=== PATIENT | male | born 1965 | race Caucasian/White ===

== ENCOUNTER 2020-06-27 18:55 | Emergency (ER) | payer BC ==
[2020-06-27 18:59] VITALS: BP 140/90; PULSE 94
--- NOTE | 2020-06-27 19:14 | EDM.PDOC ---
ED HPI GENERAL MEDICAL PROBLEM - General Chief Complaint: Upper Extremity Injury/Pain Stated Complaint: Arm pain and swelling Time Seen by Provider: 06/27/20 18:55 Source of Information: Reports: Old Records ([facility] EMR. No paper hospital chart available.) History Limitations: Reports: No Limitations - History of Present Illness INITIAL COMMENTS - FREE TEXT/NARRATIVE: The patient was brought to the emergency room via private automobile by his for evaluation of 03/11 throbbing, sharp right biceps pain after an [place] the [place] he [place] working at about 4 PM this afternoon. The patient was trying to jump onto a tractor when his coworker suddenly drove off resulting in his right arm injury. He did hear a pop at the time of the injury. The patient denies any history of fall, head injury, paresthesias, neurological deficits, neck/back pain, or other complaints or injuries. He is right-handed and has not injured this arm in the past. No treatment prior to arrival. The patient denies any chest pain/pressure, heart flutter, dizziness, orthostasis, orthopnea, diaphoresis, paresthesias, recent decreased exercise tolerance, or any other anginal-type symptoms. No recent history of abdominal pain, heartburn, nausea, diarrhea, melena, gross hematochezia, or any food intolerance, including fatty foods, etc.. The patient also denies any recent fever, cough, wheezing, dyspnea, etc.. Onset: Today, Sudden Onset Date: 06/27/20 Onset Time: 16:00 Duration: Constant Location: Reports: Upper Extremity, Right. Denies: Head, Face, Neck, Chest, Abdomen, Back, Pelvis, Upper Extremity, Left, Radiates to Quality: Reports: Sharp, Throbbing Severity: Moderate Improves with: Reports: Rest Worsens with: Reports: Movement Context: Reports: Trauma (As above) Associated Symptoms: Denies: Confusion, Chest Pain, Cough, Diaphoresis, Fever/Chills, Headaches, Loss of Appetite, Nausea/Vomiting, Rash, Shortness of Breath, Syncope, Weakness Treatments PRE CODER: Reports: Other (see below) (None) Right Upper Arm Pain Score (Numeric/FACES): 7 - Related Data Allergies Allergy/AdvReac Type Severity Reaction Status Date / Time No Known Allergies Allergy Verified 06/27/20 19:06 Home Meds: Home Meds Aspirin 81 mg PO BRK 09/11/16 [History] Benazepril [Lotensin] 20 mg PO DAILY 09/11/16 [History] Multivitamin [Multi-Day Vitamins] 1 tab PO DAILY 09/11/16 [History] amLODIPine [Norvasc] 10 mg PO DAILY 09/11/16 [History] atorvaSTATin [Lipitor] 40 mg PO BEDTIME 09/11/16 [History] metFORMIN [Glucophage] 1,000 mg PO BIDMEALS 09/11/16 [History] Past Medical History HEENT History: Reports: None. Denies: Allergic Rhinitis, Glaucoma, Hard of Hearing, Impaired Vision, Macular Degeneration Cardiovascular History: Reports: High Cholesterol, Hypertension. Denies: Afib, Aneurysm, Arrhythmia, Blood Clots/VTE/DVT, CAD, Cardiomyopathy, Heart Failure, Heart Murmur, AL, PVD, Syncope Respiratory History: Reports: None. Denies: Asthma, COPD, Intubation, Previous, PE, Pneumothorax, Sleep Apnea, TB Gastrointestinal History: Reports: Fatty Liver, Other (See Below). Denies: Celiac Disease, Cholelithiasis, Chronic Constipation, Chronic Diarrhea, Fecal Incontinence, Gastritis, GERD, GI Bleed, Hepatitis, Hiatal Hernia, Inflammatory Bowel Disease, Irritable Bowel Syndrome, Jaundice, Pancreatitis, PUD Other Gastrointestinal History: Fatty liver by ultrasound with questionable hepatic hemangioma by CT scan in 2016 however not present at time of abdominal ultrasound in 2019 as below. Genitourinary History: Reports: Hydronephrosis, Renal Calculus, Other (See Below). Denies: BPH, Chronic Renal Insuffiency, Retention, Urinary, STD, Urinary Incontinence, UTI, Recurrent Other Genitourinary History: Right-sided urolithiasis with mild hydronephrosis on 09/11/2016 with spontaneous passage. Benign right renal cyst by ultrasound on 10/30/2019. Musculoskeletal History: Reports: Arthritis, Osteoarthritis. Denies: Back Pain, Chronic, Fracture, Gout, Neck Pain, Chronic, RA, SLE Neurological History: Reports: None. Denies: Cerebral Aneurysms, Concussion, CVA, Headaches, Chronic, Head Trauma, Migraines, MS, Neuropathy, Peripheral, Parkinson's, Seizure, TIA Psychiatric History: Reports: None. Denies: Abuse, Victim of, ADD, ADHD, Addiction, Anxiety, Depression, Psych Hospitalization(s), PTSD, Suicide Attempt, Suicidal Ideation Endocrine/Metabolic History: Reports: Diabetes, Type II, Hypomagnesemia, Obesity/BMI 30+. Denies: Diabetes, Type I, Diabetes Mellitus, Type 3c, Hypothyroidism, IDDM Hematologic History: Reports: None. Denies: Anemia, B12 Deficiency, Blood Transfusion(s), Iron Deficiency Immunologic History: Reports: None. Denies: AIDS, HIV, SLE Oncologic (Cancer) History: Reports: Other (See Below). Denies: Colon, Hodgkin's Lymphoma, Leukemia, Lymphoma, Non-Hodgkin's Lymphoma, Prostate Other Oncologic History: Unknown type of skin cancer excised in 2002 Dermatologic History: Reports: None. Denies: Eczema, Psoriasis - Infectious Disease History Infectious Disease History: Reports: None. Denies: C-Difficile, Chicken Pox, Measles, Meningitis, Mononucleosis, MRSA, Mumps, Pertussis (Whooping Cough), Rheumatic Fever, Rubella, Scarlet Fever, Shingles, TB, VRE - Past Surgical History Head Surgeries/Procedures: Reports: None HEENT Surgical History: Reports: None. Denies: Adenoidectomy, Cataract Surgery, Eye Surgery, Laser Surgery, LASIK, Myringotomy w Tube(s), Naso-Sinus Surgery, Oral Surgery, Tonsillectomy Cardiovascular Surgical History: Reports: None. Denies: Varicose Respiratory Surgical History: Reports: None. Denies: Thoracentesis GI Surgical History: Reports: None. Denies: Appendectomy, Cholecystectomy, Colonoscopy, EGD, Hernia, Abdominal, Hernia Repair/Other, Jose Fundoplication Male Surgical History: Reports: Circumcision, Other (See Below). Denies: Renal Calculus, Vasectomy Other Male Surgeries/Procedures: Circumcision as an infant. Endocrine Surgical History: Reports: None. Denies: Thyroid Biopsy Neurological Surgical History: Reports: None. Denies: C-Spine, Discectomy, Laminectomy, Lumbar Spine, Sacral Spine, Spinal Fusion, Thoracic Spine, Vertebroplasty Musculoskeletal Surgical History: Reports: None. Denies: Arthroscopic Procedure, Carpal Tunnel, Ganglion Cyst, Joint Replacement, ORIF, Shoulder Surgery Oncologic Surgical History: Reports: Other (See Below) Other Oncologic Surgeries/Procedures: Excision of unknown type of skin cancer in 2002. Dermatological Surgical History: Reports: Skin Biopsy, Other (See Below) Other Dermatological Surgeries/Procedures: Excision of skin cancer as above. - Past Imaging History Past Imaging History: Reports: CAT Scan (CT of the abdomen and pelvis on 09/11/2016.), Ultrasound (Abdominal ultrasound on 10/30/2019.) Social & Family History - Tobacco Use Tobacco Use Status *Q: Never Tobacco User Tobacco Use Within Last Twelve Months: No Used Tobacco, but Quit: No Smoking Cessation Information Provided To Patient: No Second Hand Smoke Exposure: No Second Hand Smoke Education Provided: No - Caffeine Use Caffeine Use: Reports: Coffee (1 Cup per day), Soda (3 sodas per day), Tea (One glass per week) - Alcohol Use Alcohol Use History: Yes Days Per Week of Alcohol Use: 3 Number of Drinks Per Day: 8 Number of Drinks Per Day Comment: Usually beer. No previous DWIs, problems with alcohol abuse, etc. Total Drinks Per Week: 24 Alcohol Use in Last Twelve Months: Yes Alcohol Use Frequency: Binges - Recreational Drug Use Recreational Drug Use: No Drug Use in Last 12 Months: No Recreational Drug Type: Denies: Amphetamines (Speed), Cocaine, Heroin, Inhalants (Glues, Solvents, Aerosols), LSD (Acid), Marijuana/Hashish, Methamphetamine, Morphine, Oxycodone - Living Situation & Occupation Living situation: Reports: (Fourth in 2014), (3 previous wives. 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 ED EXAM, GENERAL - Physical Exam Exam: See Below Exam Limited By: No Limitations General Appearance: Alert, WD/WN, No Apparent Distress Head: Atraumatic, Normocephalic. No: Facial Swelling, Facial Tenderness, Sinus Tenderness Neck: Normal Inspection, Supple, Non-Tender, Full Range of Motion. No: Lymphadenopathy (L), Lymphadenopathy (R), Thyromegaly Respiratory/Chest: No Respiratory Distress, Lungs Clear, Normal Breath Sounds, No Accessory Muscle Use, Chest Non-Tender. No: Pleural Rub, Retractions Cardiovascular: Normal Peripheral Pulses, Regular Rate, Rhythm, No Edema, No Gallop, No JVD, No Murmur, No Rub. No: Gallop/S3, Gallop/S4, Friction Rub Peripheral Pulses: 2+: Radial (L), Radial (R) GI/Abdominal: Normal Bowel Sounds, Soft, Non-Tender, No Organomegaly, No Distention, No Abnormal Bruit, No Mass, Pelvis Stable, Other (Obese). No: Guarding (Male) Exam: Deferred Rectal (Males) Exam: Deferred Back Exam: Normal Inspection, Full Range of Motion. No: CVA Tenderness (L), CVA Tenderness (R), Muscle Spasm Extremities: No Pedal Edema, Normal Capillary Refill, Arm Pain (Mild to moderate right arm pain by palpation with evidence of a proximal biceps tendon tear. Right shoulder shows full range of motion with no evidence of tenderness, dislocation, etc.), Limited Range of Motion (Secondary to right arm pain). No: Palomo's Sign Neurological: Alert, Oriented, CN II-XII Intact, Normal Cognition, Normal Gait, No Motor/Sensory Deficits Psychiatric: Normal Affect, Normal Mood Skin Exam: Warm, Dry, Intact, Normal Color, No Rash, Tattoo(s) (Multiple). No: Diaphoretic, Wound/Incision Lymphatic: No Adenopathy Course - Vital Signs Last Recorded V/S: Last Vital Signs Temp 36.7 C 06/27/20 18:57 Pulse 94 06/27/20 18:57 Resp 16 06/27/20 18:57 BP 140/90 06/27/20 18:57 Pulse Ox 99 06/27/20 18:57 Vital Signs - 24 hr 06/27/20 18:57 Temperature [ 36.7 C Oral] Pulse, 94 Peripheral [ Pulse Oximetry] Respiratory 16 Rate Blood Pressure 140/90 [Left Upper Arm ] O2 Sat by Pulse 99 Oximetry - Orders/Labs/Meds Labs: None Meds: None - Radiology Interpretation Free Text/Narrative:: None Departure - Departure Time of Disposition: 19:20 Disposition: Home, Self-Care 01 Condition: Good Clinical Impression: Rupture of right biceps tendon Qualifiers: Encounter type: initial encounter Qualified Code(s): S46.211A - Strain of muscle, fascia and tendon of other parts of biceps, right arm, initial encounter Osteoarthritis Qualifiers: Osteoarthritis location: multiple joints Osteoarthritis type: primary Qualified Code(s): M15.0 - Primary generalized (osteo)arthritis Hypertension Qualifiers: Hypertension type: essential hypertension Qualified Code(s): I10 - Essential (primary) hypertension Diabetes mellitus Qualifiers: Diabetes mellitus type: type 2 Diabetes mellitus snf insulin use: without technician terminal and repeater use Diabetes mellitus complication status: without complication Qualified Code(s): E11.9 - Type 2 diabetes mellitus without complications Hyperlipidemia Qualifiers: Hyperlipidemia type: unspecified Qualified Code(s): E78.5 - Hyperlipidemia, unspecified - Discharge Information *PRESCRIPTION DRUG MONITORING PROGRAM REVIEWED*: Not Applicable *COPY OF PRESCRIPTION DRUG MONITORING REPORT IN PATIENT AMAN: Not Applicable Instructions: Proximal Biceps Tendon Tear Referrals: Sameera Crowell PA-C [Primary Care Provider] - Forms: ED Department Discharge, ED Return to Work/School Form Additional Instructions: 1. Followup with your regular provider in 10-14 days as directed. Bring these discharge instructions with you to that visit. Discuss possible referral to physical therapy, orthopedic surgeon for possible surgery, etc. at that time depending on your symptoms at follow-up. 2. Tylenol 650 mg by mouth every 4 hours and/or OTC ibuprofen 2-3 tabs by mouth every 6 hours with food as directed./needed. You may stagger these medications for 48-72 hours only, which essentially means that you are receiving a pain medication about every 2 hours. 3. My activity restrictions as discussed. 4. BenGay or equivalent, heating pad, and/or ice packs as directed. 5. Immediately after this visit verify that your cellular telephone's voicemail has been activated and is empty. Also verify that your home telephone's SoundOut machine is operating properly and has space to receive messages. Note that it is sometimes necessary for us to be able to contact you at a later date to discuss your medical care. 6. Please remember that we are ALWAYS here for you and want to answer any questions you may have. Feel free to call the hospital any time and we call you back [facility]. Sepsis Event Note (ED) - Evaluation Sepsis Screening Result: No Definite Risk - Focused Exam Vital Signs: Vital Signs Temp Pulse Resp BP Pulse Ox 06/27/20 18:57 36.7 C 94 16 140/90 99 - Problem List & Annotations (1) Rupture of right biceps tendon SNOMED Code(s): 007172535 Code(s): S46.211A - STRAIN OF MUSC/FASC/TEND PRT BICEPS, RIGHT ARM, INIT Status: Acute Priority: High Onset Date: 06/27/20 Annotation/Comment:: Symptomatic relief as per discharge instructions. The patient did not wish a referral to physical therapy at this time. He also did not want to have a work excuse. Activity restrictions were discussed. Close follow-up by regular provider as per discharge instructions with possible referral to physical therapy, orthopedic surgeon, etc. depending on his clinical course. Qualifiers: Encounter type: initial encounter Qualified Code(s): S46.211A - Strain of muscle, fascia and tendon of other parts of biceps, right arm, initial encounter (2) Diabetes mellitus SNOMED Code(s): 96208921 Code(s): E11.9 - TYPE 2 DIABETES MELLITUS WITHOUT COMPLICATIONS Status: Chronic Priority: Medium Annotation/Comment:: Stable by patient history with current medical therapy. Decreased alcohol intake and weight loss moderation is advisable. Qualifiers: Diabetes mellitus type: type 2 Diabetes mellitus technician terminal and repeater insulin use: without snf use Diabetes mellitus complication status: without complication Qualified Code(s): E11.9 - Type 2 diabetes mellitus without complications (3) Hyperlipidemia SNOMED Code(s): 90442514 Code(s): E78.5 - HYPERLIPIDEMIA, UNSPECIFIED Status: Chronic Priority: Medium Annotation/Comment:: Under therapy. Weight loss in moderation as above. Note history of fatty liver. Qualifiers: Hyperlipidemia type: unspecified Qualified Code(s): E78.5 - Hyperlipidemia, unspecified (4) Hypertension SNOMED Code(s): 03404634 Code(s): I10 - ESSENTIAL (PRIMARY) HYPERTENSION Status: Chronic Priority: Medium Annotation/Comment:: Mildly elevated in the emergency room today likely secondary to some mild discomfort from his injury, although otherwise stable blood pressures by his history. Continue to observe closely by his regular provider. Qualifiers: Hypertension type: essential hypertension Qualified Code(s): I10 - Essential (primary) hypertension (5) Osteoarthritis SNOMED Code(s): 210223241 Code(s): M19.90 - UNSPECIFIED OSTEOARTHRITIS, UNSPECIFIED SITE Status: Chronic Priority: Medium Annotation/Comment:: Otherwise stable by history with no evidence of other injuries. Qualifiers: Osteoarthritis location: multiple joints Osteoarthritis type: primary - Problem List Review Problem List Initiated/Reviewed/Updated: Yes - Assessment/Plan Assessment:: As above Plan: As above. Extensive precautions were given to the patient, who is in agreement with the treatment plan. See Patient Instructions for further treatment and plan.
== END 2020-06-27 19:20 | disposition home or self-care (01) ==
LOC: LL.ED 18:55
DX: S46.211A Strain of muscle, fascia and tendon of other parts of biceps, right arm, initial encounter (principal); M15.0 Primary generalized (osteo)arthritis; I10 Essential (primary) hypertension; E78.5 Hyperlipidemia, unspecified; E11.9 Type 2 diabetes mellitus without complications; E78.00 Pure hypercholesterolemia, unspecified; M19.90 Unspecified osteoarthritis, unspecified site; E66.9 Obesity, unspecified; Z79.82 Long term (current) use of aspirin; Z79.84 Long term (current) use of oral hypoglycemic drugs; Z79.899 Other long term (current) drug therapy; X50.9XXA Other and unspecified overexertion or strenuous movements or postures, initial encounter
CPT/HCPCS: 99283

== ENCOUNTER 2021-11-25 06:18 | Emergency (ER) | payer BC ==
[2021-11-25] MEDS ORDERED: Sodium Chloride 0.9% 10 ML Syringe FLUSH PRN ×2 (06:22→07:02)
[2021-11-25] MEDS ORDERED: Ondansetron 4 MG/2 ML SDV IVPUSH ONE (07:02)
[2021-11-25 07:03] LABS: ANION GAP 10.7 meq/L (7-15); CHLORIDE,CL 103 mmol/L (98-107); SODIUM,NA 138 mmol/L (136-145)
[2021-11-25] MEDS ORDERED: Ketorolac 30 MG/ML SDV IVPUSH ONE (07:03)
[2021-11-25] MEDS ORDERED: Sodium Chloride 0.9% 1,000 ML IV ONE (07:20)
[2021-11-25 15:16] VITALS: BP 147/62; PULSE 72
== END 2021-11-25 10:45 ==
LOC: LL.ED 06:18
DX: K81.9 Cholecystitis, unspecified (principal); E78.00 Pure hypercholesterolemia, unspecified; I10 Essential (primary) hypertension; E11.9 Type 2 diabetes mellitus without complications; E66.9 Obesity, unspecified; Z79.82 Long term (current) use of aspirin; Z79.899 Other long term (current) drug therapy; Z68.36 Body mass index [BMI] 36.0-36.9, adult
CPT/HCPCS: 36415; 74176; 80053; 81001; 82150; 83690; 85025; 96374; 96375; 99284; 99285-25; J1885; J2405; J7030

== ENCOUNTER 2022-07-31 19:35 | Emergency (ER) | payer BC ==
[2022-07-31] MEDS ORDERED: Ketorolac 15 MG/ML SDV IM ONE (19:40)
[2022-07-31] MEDS ORDERED: HYDROmorphone 0.5 MG/0.5 ML Syringe IVPUSH ONE ×3 (19:40→21:51)
[2022-07-31] MEDS ORDERED: Sodium Chloride 0.9% 1,000 ML IV ONE ×2 (19:40→20:40)
[2022-07-31] MEDS ORDERED: Ondansetron 4 MG/2 ML SDV IVPUSH ONE (19:41)
[2022-07-31] MEDS ORDERED: Sodium Chloride 0.9% 10 ML Syringe FLUSH PRN (19:41)
[2022-07-31 20:14] LABS: ANION GAP 8.2 meq/L (7-15); CHLORIDE,CL 102 mmol/L (98-107); SODIUM,NA 139 mmol/L (136-145)
[2022-07-31 20:15] LABS: ESTIMATED GFR 70 mL/min (>=60)
[2022-07-31] MEDS ORDERED: Tamsulosin 0.4 MG Cap.ER PO ONE (20:40)
[2022-07-31] MEDS ORDERED: Acetaminophen/HYDROcodone 325-10 MG Tab PO PRN ×2 (21:55)
[2022-07-31 22:03] VITALS: BP 132/88; PULSE 79
== END 2022-07-31 22:25 | disposition home or self-care (01) ==
LOC: LL.ED 19:35
DX: N13.2 Hydronephrosis with renal and ureteral calculous obstruction (principal); E78.00 Pure hypercholesterolemia, unspecified; I10 Essential (primary) hypertension; M19.90 Unspecified osteoarthritis, unspecified site; E11.9 Type 2 diabetes mellitus without complications; E66.9 Obesity, unspecified; Z79.82 Long term (current) use of aspirin; Z79.84 Long term (current) use of oral hypoglycemic drugs; Z79.899 Other long term (current) drug therapy
CPT/HCPCS: 36415; 74176; 80053; 81001; 85025; 96361; 96372; 96374; 96375; 96376; 99284-25; A9270-GY; J1170; J1885; J2405; J3490; J7030